=== PATIENT | female | born 1980 | race Caucasian/White ===

== ENCOUNTER 2017-01-25 20:13 | Emergency (ER) | payer BC ==
[2017-01-25] MEDS ORDERED: ADENOSINE 6MG/2ML 2 ML VIAL IV ONE (20:29)
[2017-01-25] MEDS ORDERED: SODIUM CHLORIDE 0.9% 1,000 ML ONE (20:29)
[2017-01-25 20:37] LABS: ABSOLUTE NEUTROPHIL COUNT 6.5 K/mm3 (1.8-7.7); BASO # 0.1 K/mm3 (0.0-0.2); BASO % 0.7 % (0.2-1.0); EOS # 0.1 (0.0-0.5); EOS % 0.9 % (0.9-2.9); HEMATOCRIT 45.9 % (37.0-47.0); HEMOGLOBIN 15.8 gm/l (12.0-16.0); IMM NEUT # 0.1 K/mm3 (0-0.2); IMM NEUT% 0.4 % (0-1); LYMPH # 5.5 (1.0-4.8); MEAN CELL VOLUME 94.3 fl (81.0-99.0); MEAN CORPUSCULAR HEMOGLOBIN 32.4 pg (27.0-31.0); MEAN CORPUSCULAR HGB CONC 34.4 g/dl (33.0-37.0); MEAN PLATELET VOLUME 10.4 fl (7.4-10.4); MONO # 1.4 (0.0-0.8); MONO % 10.6 % (4-12); NEUT % 47.4 % (43-75); PLATELET COUNT 400 K/mm3 (130-400); RED CELL DISTRIBUTION WIDTH 11.9 % (11.5-14.5)
[2017-01-25 20:57] LABS: ALB/GLOB RATIO 1.5 (>1.0); ALBUMIN 4.3 gm/dL (3.5-5.7); CALCIUM 8.8 mg/dL (8.6-10.3)
[2017-01-25 21:03] LABS: TROPONIN I < 0.01 ng/ml (0.0-0.06)
[2017-01-25 21:07] LABS: CKMB ISOENZYME 0.9 ng/ml (0.6-6.3)
[2017-01-25 21:13] LABS: THYROID STIMULATING HORMONE 1.92 uIU/ml (0.34-5.60)
== END 2017-01-25 22:14 | disposition home or self-care (01) ==
LOC: ED 20:13
DX: I47.1 Supraventricular tachycardia (principal); E78.5 Hyperlipidemia, unspecified; M79.601 Pain in right arm; M54.2 Cervicalgia; F17.210 Nicotine dependence, cigarettes, uncomplicated
CPT/HCPCS: 85025; 82553; 80053; 84443; 84484; 99284 ×2; 96374; 96361; 93005 ×3; J0153; J7030

== ENCOUNTER 2017-01-26 02:11 | Emergency (ER) | payer BC ==
[2017-01-26] MEDS ORDERED: ADENOSINE 6MG/2ML 2 ML VIAL IV ONE (02:19)
[2017-01-26] MEDS ORDERED: SODIUM CHLORIDE 0.9% 1,000 ML ONE (02:22)
[2017-01-26] MEDS ORDERED: METOPROLOL TARTRATE 1 MG/ML 5ML VIAL ONE (02:50)
== END 2017-01-26 04:07 | disposition home or self-care (01) ==
LOC: ED 02:11
DX: I47.1 Supraventricular tachycardia (principal); E78.5 Hyperlipidemia, unspecified; Z72.0 Tobacco use
CPT/HCPCS: 85379; 96375; 99283 ×2; 96374; 96361; 93005 ×2; J0153; J7030